=== PATIENT | male | born 2000 | race Caucasian/White ===

== ENCOUNTER 2022-02-13 19:32 | Emergency (ER) | payer MEDICAID ==
[~2022-02-13] VITALS: Ht 177.8 cm; Wt 77.3 kg
[2022-02-13 20:38] VITALS: BP 116/71
== END 2022-02-13 20:56 | disposition home or self-care (01) ==
LOC: EMS 19:37
DX: F14.988 Cocaine use, unspecified with other cocaine-induced disorder (principal); F12.90 Cannabis use, unspecified, uncomplicated
CPT/HCPCS: 99281; Z7502

== ENCOUNTER 2023-05-02 10:13 | Emergency (ER) | payer MEDICAID ==
[~2023-05-02] VITALS: Ht 182.9 cm; Wt 74.5 kg
[2023-05-02 10:16] VITALS: TEMP 98
[2023-05-02 10:54] LABS: BASOPHILS % (AUTO) 1.2 % (0.0-2.0); EOSINOPHILS % (AUTO) 11.6 % (1.0-6.0); HEMATOCRIT 43.7 % (41-53); LYMPHOCYTES # (AUTO) 1.7 K/uL (1.0-4.8); LYMPHOCYTES % (AUTO) 24.5 % (22.0-44.0); MEAN CORPUSCULAR HEMOGLOBIN 33.9 pg (26.0-34.0); MEAN CORPUSCULAR HGB CONC 34.4 G/dL (31.0-37.0); MEAN CORPUSCULAR VOLUME 99 fL (80-100); MONOCYTES # (AUTO) 0.6 K/uL (0.1-1.0); MONOCYTES % (AUTO) 8.6 % (2.0-9.0); NEUTROPHILS # (AUTO) 3.7 K/uL (1.8-7.7); NEUTROPHILS % (AUTO) 54.1 % (40.0-70.0); PLATELET COUNT (AUTO) 342 K/uL (150-450); RED BLOOD CELL COUNT(AUTO) 4.43 MIL/uL (4.50-5.90); RED CELL DISTRIBUTION WIDTH 13.6 % (11.5-14.5)
[2023-05-02 10:57] LABS: ANION GAP 13 mmol/L (8-16); CALCIUM, TOTAL 8.9 mg/dL (8.8-10.5); CARBON DIOXIDE 28 mmol/L (22-29); CHLORIDE 98 mmol/L (98-107); CREATININE 0.84 mg/dL (0.60-1.30); GLOMERULAR FILTR. RATE CALC > 60 mL/min (>60); GLUCOSE,RANDOM 103 mg/dL (70-110); POTASSIUM 3.8 mmol/L (3.5-5.1); SODIUM SERUM 139 mmol/L (136-145)
[2023-05-02] MEDS ORDERED: CEPH-558 PO (11:02)
[2023-05-02 11:05] VITALS: BP 131/86; PULSE 71; RESP 16
[2023-05-02 11:09] LABS: ALANINE AMINOTRANSFERASE 65 U/L (12-78); ALBUMIN 3.9 g/dL (3.4-5.0); ALKALINE PHOSPHATASE 107 U/L (46-116); ASPARTATE AMINOTRANSFERASE 41 U/L (15-37); BILIRUBIN,TOTAL 2.5 mg/dL (0.1-1.0); TOTAL PROTEIN, SERUM 7.2 g/dL (6.4-8.2)
== END 2023-05-02 11:10 | disposition home or self-care (01) ==
LOC: EMS 10:13
DX: R10.9 Unspecified abdominal pain (principal); F12.90 Cannabis use, unspecified, uncomplicated; F14.90 Cocaine use, unspecified, uncomplicated
CPT/HCPCS: 10160; 80053; 85025; 99284

== ENCOUNTER 2023-07-23 13:29 | Emergency (ER) | payer MEDICAID ==
[~2023-07-23] VITALS: Ht 182.9 cm; Wt 75.0 kg
[~2023-07-23 13:29] MED LIST: CEPH-558 PO
[2023-07-23 13:31] VITALS: TEMP 98.3
[2023-07-23 15:00] VITALS: BP 110/66; PULSE 70; RESP 18
[2023-07-23] MEDS ORDERED: IBUP-1492 PO (15:01)
== END 2023-07-23 16:03 | disposition home or self-care (01) ==
LOC: EMS 13:32
DX: S93.401A Sprain of unspecified ligament of right ankle, initial encounter (principal); F14.90 Cocaine use, unspecified, uncomplicated; F12.90 Cannabis use, unspecified, uncomplicated; X58.XXXA Exposure to other specified factors, initial encounter; Y93.89 Activity, other specified; Y92.89 Other specified places as the place of occurrence of the external cause; Y99.8 Other external cause status
CPT/HCPCS: 99283

== ENCOUNTER 2024-01-11 15:55 | Emergency (ER) | payer MEDICAID ==
[~2024-01-11] VITALS: Ht 180.3 cm; Wt 84.1 kg
[~2024-01-11 15:55] MED LIST changes: +IBUP-1492 PO
[2024-01-11 16:06] VITALS: TEMP 97.9
[2024-01-11] MEDS: HYDROGEN PEROXIDE 118 ML SOLUTION TP ONE (17:25)
[2024-01-11 18:40] VITALS: BP 108/69; PULSE 81; RESP 16
== END 2024-01-11 19:11 | disposition home or self-care (01) ==
LOC: EMS 16:17
DX: H61.22 Impacted cerumen, left ear (principal); F14.90 Cocaine use, unspecified, uncomplicated; F12.90 Cannabis use, unspecified, uncomplicated
CPT/HCPCS: 69209; 99282; Z7502; Z7610

== ENCOUNTER 2024-03-17 02:34 | Emergency (ER) | payer MEDICAID ==
[~2024-03-17] VITALS: Ht 180.3 cm; Wt 81.8 kg
[2024-03-17 02:38] VITALS: TEMP 98.4
[2024-03-17] MEDS: FAMOTIDINE 20 MG TABLET PO ONE (03:47)
[2024-03-17] MEDS: MAG HYDROX/ALUMINUM HYD/SIMETH ES 30 ML SUSPENSION UDCUP PO ONE (03:47)
[2024-03-17 04:24] LABS: BASOPHILS % (AUTO) 0.7 % (0.0-2.0); EOSINOPHILS % (AUTO) 7.7 % (1.0-6.0); HEMATOCRIT 41.4 % (41-53); HEMOGLOBIN 14.2 g/dL (13.5-17.5); LYMPHOCYTES # (AUTO) 0.9 K/uL (1.0-4.8); MEAN CORPUSCULAR HEMOGLOBIN 33.7 pg (26.0-34.0); MEAN CORPUSCULAR HGB CONC 34.3 G/dL (31.0-37.0); MEAN CORPUSCULAR VOLUME 98 fL (80-100); MONOCYTES # (AUTO) 0.7 K/uL (0.1-1.0); MONOCYTES % (AUTO) 12.1 % (2.0-9.0); NEUTROPHILS # (AUTO) 3.4 K/uL (1.8-7.7); NEUTROPHILS % (AUTO) 62.5 % (40.0-70.0); PLATELET COUNT (AUTO) 230 K/uL (150-450); RED BLOOD CELL COUNT(AUTO) 4.22 MIL/uL (4.50-5.90); RED CELL DISTRIBUTION WIDTH 12.5 % (11.5-14.5); WHITE BLOOD COUNT (AUTO) 5.4 K/uL (4.5-11.0)
[2024-03-17 04:34] LABS: ANION GAP 9 mmol/L (8-16); CALCIUM, TOTAL 9.3 mg/dL (8.8-10.5); CARBON DIOXIDE 31 mmol/L (22-29); CHLORIDE 99 mmol/L (98-107); CREATININE 0.77 mg/dL (0.60-1.30); GLOMERULAR FILTR. RATE CALC > 60 mL/min (>60); GLUCOSE,RANDOM 104 mg/dL (70-110); LIPASE 37 U/L (16-77); POTASSIUM 3.4 mmol/L (3.5-5.1); SODIUM SERUM 139 mmol/L (136-145); UREA NITROGEN, BLOOD 8 mg/dL (7-18)
[2024-03-17] MEDS ORDERED: FAMO20 PO (04:43)
[2024-03-17 04:45] VITALS: BP 134/62; PULSE 61; RESP 20
== END 2024-03-17 05:09 | disposition home or self-care (01) ==
LOC: EMS 02:34
DX: R10.13 Epigastric pain (principal); F17.210 Nicotine dependence, cigarettes, uncomplicated; F12.90 Cannabis use, unspecified, uncomplicated
CPT/HCPCS: 80048; 83690; 85025; 99283

== ENCOUNTER 2024-05-05 17:26 | Emergency (ER) | payer MEDICAID ==
[~2024-05-05] VITALS: Ht 180.3 cm; Wt 81.8 kg
[~2024-05-05 17:26] MED LIST changes: -CEPH-558 PO; +FAMO20 PO; -IBUP-1492 PO
[2024-05-05 17:32] VITALS: BP 137/87; PULSE 87; RESP 18; TEMP 98.3
[2024-05-05 18:23] LABS: BASOPHILS % (AUTO) 1.4 % (0.0-2.0); EOSINOPHILS % (AUTO) 0 % (1.0-6.0); HEMATOCRIT 45.5 % (41-53); HEMOGLOBIN 15.6 g/dL (13.5-17.5); LYMPHOCYTES # (AUTO) 0.5 K/uL (1.0-4.8); LYMPHOCYTES % (AUTO) 5.6 % (22.0-44.0); MEAN CORPUSCULAR HGB CONC 34.3 G/dL (31.0-37.0); MEAN CORPUSCULAR VOLUME 99 fL (80-100); MONOCYTES # (AUTO) 0.4 K/uL (0.1-1.0); MONOCYTES % (AUTO) 4.4 % (2.0-9.0); NEUTROPHILS # (AUTO) 7.7 K/uL (1.8-7.7); PLATELET COUNT (AUTO) 337 K/uL (150-450); RED BLOOD CELL COUNT(AUTO) 4.59 MIL/uL (4.50-5.90); RED CELL DISTRIBUTION WIDTH 13.4 % (11.5-14.5); WHITE BLOOD COUNT (AUTO) 8.7 K/uL (4.5-11.0)
[2024-05-05 18:29] LABS: NEUTROPHILS % (AUTO) 88.6 % (40.0-70.0)
[2024-05-05 18:47] LABS: ANION GAP 17 mmol/L (8-16); CALCIUM, TOTAL 9.3 mg/dL (8.8-10.5); CARBON DIOXIDE 22 mmol/L (22-29); CHLORIDE 93 mmol/L (98-107); CREATININE 1.05 mg/dL (0.60-1.30); GLOMERULAR FILTR. RATE CALC > 60 mL/min (>60); GLUCOSE,RANDOM 83 mg/dL (70-110); SODIUM SERUM 132 mmol/L (136-145); UREA NITROGEN, BLOOD 10 mg/dL (7-18)
[2024-05-05 18:54] LABS: ALANINE AMINOTRANSFERASE 145 U/L (12-78); ALBUMIN 4.7 g/dL (3.4-5.0); ALKALINE PHOSPHATASE 112 U/L (46-116); ASPARTATE AMINOTRANSFERASE 135 U/L (15-37); BILIRUBIN,TOTAL 3.9 mg/dL (0.1-1.0); TOTAL PROTEIN, SERUM 8.6 g/dL (6.4-8.2)
[2024-05-05 19:19] LABS: LIPASE 33 U/L (16-77)
[2024-05-05] MEDS: MORPHINE SULFATE 4 MG/ML SYRINGE IVP ONE (19:39)
[2024-05-05] MEDS: ONDANSETRON HCL 4 MG/2 ML VIAL IVP ONE (19:39)
[2024-05-05] MEDS: SODIUM CHLORIDE 0.9% 1,000 ML IV ONE (19:41)
[2024-05-05] MEDS: MAG HYDROX/ALUMINUM HYD/SIMETH ES 30 ML SUSPENSION UDCUP PO ONE (20:33)
== END 2024-05-05 22:46 | disposition home or self-care (01) ==
LOC: EMS 17:26
DX: K29.70 Gastritis, unspecified, without bleeding (principal); F10.20 Alcohol dependence, uncomplicated; F17.210 Nicotine dependence, cigarettes, uncomplicated; F14.90 Cocaine use, unspecified, uncomplicated; F12.90 Cannabis use, unspecified, uncomplicated; Y90.9 Presence of alcohol in blood, level not specified
CPT/HCPCS: 99285; 96374; 76700; 96361; 96375; 80048; 80076; 83690; 85025; J2270; J2405; J7030; 36415-L1; 36415-TC